=== PATIENT | female | born 1970 | race Caucasian/White ===

== ENCOUNTER 2016-05-22 14:07 | Emergency (ER) | payer BC ==
[2016-05-22 14:57] VITALS: BP 122/79; PULSE 86; RESP 16; TEMP 98.2; O2SAT 96
--- NOTE | 2016-05-22 15:16 | UCPHY ---
H & P Patient Type: New Smoking Status: Never smoked Time Seen by Provider: 05/22/16 15:10 HPI/ROS: CHIEF COMPLAINT: Low back pain, increased frequency HISTORY OF PRESENT ILLNESS: 46-year-old immunocompetent female complaining of 1 days of low back and flank pain as well as increased urinary frequency x1 with no dysuria, no hesitancy. No flank pain. No rash. No trauma. Reproducible pain with range of motion. No nausea no vomiting. No abdominal pain. No fever no chills. No trauma. No incontinence. No retention. No saddle anesthesia. No radiculopathy. No footdrop. No recent illness. REVIEW OF SYSTEMS: A ten point review of systems was performed and is negative with the exception of the items mentioned in the HPI PAST MEDICAL & SURGICAL HISTORY: No pertinent medical or surgical history SOCIAL HISTORY: nonsmoker. No IV drug use. PHYSICAL EXAM (Prior to examination, patient consented to physical exam, hands were washed and my usual and customary physical exam procedures followed) 1) GENERAL: Well-developed, well-nourished, alert and oriented. Appears Nontoxic 2) HEAD: Normocephalic, atraumatic 3) HEENT: Pupils equal, round, reactive to light bilaterally. Sclera anicteric. Nasopharynx, oropharynx, clear, no lesions. Ears bilaterally with normal tympanic membranes. 4) NECK: Full range of motion, no meningeal signs. 5) LUNGS: Clear auscultation bilaterally, no wheezes, no rhonchi, no retractions. 6) HEART: Regular rate and rhythm, no murmur, no heave, no gallop. 7) ABDOMEN: No guarding, no rebound, no focal tenderness, negative McBurney's, negative Barker's, negative Rovsing's, negative peritoneal sign, 8) MUSCULOSKELETAL: Moving all extremities, no focal areas of tenderness, no obvious trauma. No peripheral edema or discoloration. 9) BACK: tender palpation paraspinous lumbar region. No rash no vesicles. No discoloration. No midline pain. No CVA tenderness, no midline vertebral tenderness, no fluctuance, no step-off, no obvious trauma, no visual or palpable abnormality. Patella, Achilles reflexes intact to bilateral strength 5 /5. 10) SKIN: No rash, no petechiae. 11) Psychiatric: Patient is oriented X 3, there is no agitation. DIFFERENTIAL DIAGNOSIS: In no particular order, including but not limited to, Early zoster with no dermatologic manifestations yet, fracture, pyelonephritis,sprain/strain, cauda equina, spinal infectious etiology. (Elliot Milan) Constitutional: Initial Vital Signs Temperature (C) 36.8 C 05/22/16 14:54 Heart Rate 86 05/22/16 14:54 Respiratory Rate 16 05/22/16 14:54 Blood Pressure 122/79 H 05/22/16 14:54 O2 Sat (%) 96 05/22/16 14:54 O2 Delivery Mode Room Air Allergies/Adverse Reactions: No Known Allergies Allergy (Unverified 05/22/16 14:54) Home Medications: Medication Instructions Recorded Hydrocodone/APAP 5/325 [[place] 1 tab PO Q6 PRN #15 tab 05/22/16 5/325 (RX)] MDM/Departure - MDM ED Course/Re-evaluation: Lower index of suspicion for cauda equina, epidural abscess, epidural hematoma, lumbar myositis, diskitis, as the patient is neurologically intact in the lower extremities, has patella and Achilles reflexes intact and equal bilaterally, has no neurologic deficits, no incontinence, no retention, no midline pain, no fluctuance, afebrile, no flulike symptoms. Pain may be secondary to muscular strain, may be secondary to discogenic etiology. At this point I do not identify definitive indication for emergent MRI, however patient may necessitate this on an outpatient basis. Doubt pyelonephritis, doubt cystitis as she has no bacteriuria/pyuria on urinalysis. Patient given acute back pain precautions. Patient verbalizes understanding of discharge instructions. I believe them be competent decision-makers. All questions and concerns have been addressed by me. Ample opportunity for questions have been provided . The patient understands that this diagnosis is provisional and can never be 100 % accurate. Usual and customary warnings were given concerning the clinical impression and all the patient's questions were answered. The patient was instructed to return to the emergency department should her symptoms worsen or return, or develop any new symptoms, otherwise to followup as directed in discharge instructions. (Elliot Milan) The patient was evaluated and managed by the Physician Shank Sander/ Nurse Practitioner. My co-signature indicates that I have reviewed this chart and I agree with the findings and plan of care as documented. I am the secondary supervising physician. (Katy Garnett) - Depart Disposition: Home, Routine, Self-Care Clinical Impression: Acute low back pain Qualifiers: Back pain laterality: bilateral Sciatica presence: without sciatica Qualifier Code: (M54.5) Low back pain Condition: Good Instructions: Low Back Strain (ED) Additional Instructions: Seek medical attention if you develop new or worsening pain, if you develop bladder or bowel dysfunction, numbness around your perineum, foot drop, or any other symptoms that concern you. Prescriptions: Hydrocodone/APAP 5/325 [[place] 5/325 (RX)] 1 tab PO Q6 PRN #15 tab PRN Reason: Pain, Severe Referrals: [facility] [Outside] - 2-3 days, call for appt. - PQRS PQRS Measurement: Not applicable (Elliot Milan)
[2016-05-22 15:31] LABS: COLOR YELLOW; LEUKOCYTE ESTERASE,URINE NEGATIVE (NEGATIVE); NITRITE,URINE NEGATIVE (NEGATIVE); PH,URINE 8.5 (5.0-7.5)
== END 2016-05-22 16:00 | disposition home or self-care (01) ==
LOC: CED 14:07
DX: M54.5 Low back pain (principal)
CPT/HCPCS: 81003-PO; 99203-PO; G0463-PO